=== PATIENT | female | born 1990 | race Caucasian/White ===

== ENCOUNTER → 2018-03-15 10:38 | Outpatient (CLI) | payer BC, SELFPAY ==
--- NOTE | 2018-03-15 10:49 | XR_ITS ---
XR foot RT min 3V HISTORY: ITS.REASON: RT FOOT PAIN ORDERING PHYSICIAN: Linda Fields PATIENT AGE: 27 years COMPARISON: None FINDINGS: No fracture or dislocation. No lytic or blastic change. There is normal mineralization.. The joint spaces are well-preserved. No significant degenerative/arthritic changes. No erosive changes evident. There is a small calcaneal spur nonspecific IMPRESSION: Small calcaneal spur otherwise negative, no acute finding
--- NOTE | 2018-03-15 10:49 | XR_ITS ---
XR ankle RT min 3V HISTORY: Pain ITS.REASON: RT FOOT PAIN ORDERING PHYSICIAN: Linda Fields PATIENT AGE: 27 years Comparison: None FINDINGS: No fracture or dislocation. No lytic or blastic change. There is normal mineralization.. The joint spaces are well-preserved. No significant degenerative/arthritic changes. No erosive changes evident. The dome of the talus has an unremarkable appearance IMPRESSION: Negative ankle, no acute finding
== END ==
PROVIDERS: PCP Nurse Practitioner; Visit Provider Nurse Practitioner
DX: M79.671 Pain in right foot (principal)
CPT/HCPCS: 73610; 73630

== ENCOUNTER → 2018-09-11 14:47 | Outpatient (CLI) | payer OTHER, SELFPAY ==
--- NOTE | 2018-09-11 14:52 | US_ITS ---
US transvaginal HISTORY: Dysfunctional uterine bleeding with cramping ITS.REASON: US T/V- DUB ORDERING PHYSICIAN: Yolie Mcleod MD PATIENT AGE: 28 years Comparison: None FINDINGS: Uterus measures 8 x 4 x 4 cm. Combined endometrial thickness is 3 mm. There is a hypoechoic area along the anterior aspect of the body of the uterus measuring 1 x 0.6 cm with some increased echogenicity centrally. The left ovary is 2 x 1.7 cm and contains a 1.4 cm cyst. The right ovary is 3 x 2 cm and contains a 1.6 cm cyst. No cul-de-sac fluid. IMPRESSION: 1. Small bilateral ovarian cysts. 2. Small complex cystic area within the body of the uterus anteriorly of questionable clinical significance
== END ==
PROVIDERS: PCP Family Medicine; Visit Provider Obstetrics & Gynecology
DX: N93.8 Other specified abnormal uterine and vaginal bleeding (principal)
CPT/HCPCS: 76830

== ENCOUNTER → 2020-10-16 10:00 | Outpatient (CLI) | payer OTHER, SELFPAY ==
--- NOTE | 2020-10-16 10:09 | US_ITS ---
PROCEDURE: US ABDOMEN LIMITED CLINICAL INDICATION: RUQ PAIN,DECREASED APPETITE COMPARISON: No exams were available for comparison FINDINGS: PANCREAS: Unremarkable. No obvious mass or abnormal fluid collection. No ductal dilatation LIVER: No focal liver lesions demonstrated. Homogeneous echogenicity. No intrahepatic biliary ductal dilatation evident. There is appropriate direction of blood flow within a non dilated portal vein RIGHT KIDNEY: Unremarkable. Normal size and echogenicity. No hydronephrosis GALLBLADDER: No gallstones, gallbladder wall thickening, pericholecystic fluid, or biliary dilatation. IMPRESSION: Unremarkable limited abdominal ultrasound as detailed above disc Dictated by: Armando Angulo MD 10/16/2020 18:11 Armando Angulo MD in [facility] 10/16/2020 18:11
== END ==
PROVIDERS: PCP Family Medicine; Visit Provider Nurse Practitioner Family
DX: R10.11 Right upper quadrant pain (principal); R63.0 Anorexia
CPT/HCPCS: 76705